=== PATIENT | female | born 1970 | race Two or more races ===

== ENCOUNTER 2016-08-29 09:41 | Day surgery (SDC) | payer OTHER ==
[~2016-08-29 09:41] MED LIST: ceFAZolin 2 GM/DEXTROSE 100 ML IV ONE
[2016-08-29] MEDS ORDERED: SKIN ADHESIVE (DERMABOND) 1 EACH TP ONE (10:32)
[2016-08-29] MEDS ORDERED: BUPIVACAINE 0.5% 30 ML SDV ONE (10:33)
[2016-08-29] MEDS ORDERED: THROMBIN (RECOMBINANT) 20,000 UNIT SPRAY TP ONE (10:33)
[2016-08-29] MEDS ORDERED: PROTAMINE SULFATE 50 MG/5 ML VIAL IVP ONE (10:33)
[2016-08-29] MEDS ORDERED: THROMBIN (RECOMBINANT) 5,000 UNIT VIAL TP ONE (10:33)
[2016-08-29] MEDS ORDERED: PAPAVERINE HCL 60 MG/2 ML SDV ONE (10:33)
[2016-08-29] MEDS ORDERED: fentaNYL 100 MCG/2 ML INJ ONE ×2 (11:05→12:31)
[2016-08-29] MEDS ORDERED: PROPOFOL 200 MG/20 ML VIAL ONE (11:13)
[2016-08-29] MEDS ORDERED: CEFAZOLIN 2 GM/DEXTROSE/100 ML BAG IV ONE (11:14)
[2016-08-29 11:21] LABS: ANION GAP 11 mEq/L (8-16); CALCIUM 9.3 mg/dL (8.5-10.4); CARBON DIOXIDE 21 mEq/l (22-31); CHLORIDE 106 mEq/L (97-110); GLOMERULAR FILTRATION RATE 12; GLUCOSE 113 mg/dL (70-100); SODIUM 138 mEq/L (134-144)
[2016-08-29] MEDS ORDERED: MIDAZOLAM 2 MG/2 ML VIAL ONE (11:35)
[2016-08-29] MEDS ORDERED: LIDOCAINE 2% JELLY 5 ML TUBE ONE (12:01)
[2016-08-29] MEDS ORDERED: HYDROCODONE/APAP 5/325 TAB ONE (14:30)
[2016-08-29] MEDS ORDERED: ONDANSETRON DISINTEGRATING 4 MG TAB PO PRN (16:30)
[2016-08-29] MEDS ORDERED: ONDANSETRON DISINTEGRATING 4 MG TAB PO ONE (16:30)
--- NOTE | 2016-08-30 10:26 | GOP ---
DATE OF OPERATION: 08/29/2016 SURGEON: Dexter Schultz MD PREOPERATIVE DIAGNOSIS: Possible steal syndrome in left arm from arteriovenous fistula. POSTOPERATIVE DIAGNOSIS: Possible steal syndrome in left arm from arteriovenous fistula. PROCEDURE PERFORMED: 1. Ultrasound vein mapping of the left arm. 2. Arteriovenous fistula revision with ligation of large collateral. FINDINGS: Patient was found to have excellent flow in the AV fistula with a large collateral on an early section of the fistula, which was flowing back down the arm almost all the way down to the i st. There was definite increase in the AV fistula flow after ligation of this collateral and there was also an increase in the palpable radial pulse. DESCRIPTION OF PROCEDURE: Patient was taken to the operating room where she received satisfactory g eneral endotracheal anesthesia by Dr. Reynoso. She was placed in the supine position with the left arm outstretched on an arm board, prepped and draped in usual sterile fashion. Ultrasound was used to map the AV fistula and this large collateral was identified and marked. A transverse incision was m deonna over the area and the dissection extended down to the fistula itself and the large collateral wa s isolated. It was ligated with 2-0 silk ligature very close to the AV fistula itself. This result ed in increased flow in the AV fistula distally and an increased radial pulse. Hemostasis was obtai inez. The wound was infiltrated with 0.5% Marcaine, closed in layers using 3-0 Vicryl for the subcu and a 4-0 Monocryl subcuticular stitch for the skin. She tolerated the procedure well. There were no complications. There were no other significant major tributaries identified on the ultrasound. /[id number]/MODL
== END 2016-08-29 14:45 | disposition home or self-care (01) ==
LOC: FSGY 09:41
PROVIDERS: ATTEND Surgery
PROC: 05LY0ZZ Occlusion of Upper Vein, Open Approach (ICD-10-PCS; principal; 2016-08-29 11:30)
DX: N18.6 End stage renal disease (principal); T82.848A Pain due to vascular prosthetic devices, implants and grafts, initial encounter; I12.9 Hypertensive chronic kidney disease with stage 1 through stage 4 chronic kidney disease, or unspecified chronic kidney disease; E11.22 Type 2 diabetes mellitus with diabetic chronic kidney disease; Z99.2 Dependence on renal dialysis
CPT/HCPCS: J0690; J1644; J2250; J2440; J2704; J2720; J3010